=== PATIENT | female | born 1985 | race Caucasian/White ===

== ENCOUNTER 2020-02-29 21:32 | Emergency (ER) | payer OTHER ==
[~2020-02-29] VITALS: Ht 157.5 cm; Wt 65.8 kg
[~2020-02-29 21:32] MED LIST: EXPECTA PRENAT1 EACH; NAPR550 PO; OXYACE5T PO
[2020-02-29 23:41] LABS: Source, Urine Clean Catch
[2020-02-29 23:52] LABS: Bilirubin, Urine Neg (Neg); Blood, Urine 5+ (Neg); Glucose Qualitative, Urine Neg (Neg); Ketones, Urine Neg (Neg); Leukocyte Esterase, Urine 1+ (Neg); Nitrite, Urine Neg (Neg); Protein, Urine Neg (Neg); Specific Gravity, Urine 1.025 (1.003-1.022); Urobilinogen, Urine NORM (Normal)
[2020-02-29 23:55] LABS: Appearance, Urine Clear (Clear); Bacteria Not Seen /hpf; Color, Urine Yellow (P-Yellow); Squamous Epithelial Cells Rare /hpf (Few); White Blood Cells, Urine Rare /hpf (0-5)
[2020-02-29 23:58] LABS: BASOPHILS ABSOLUTE AUTO 0.05 K/mm3 (0.00-0.23); BASOPHILS PERCENT AUTO 0 % (0-2); EOSINOPHILS ABSOLUTE AUTO 0.22 K/mm3 (0.00-0.68); EOSINOPHILS PERCENT AUTO 2 % (0-6); Hematocrit 42.9 % (33.0-51.0); Hemoglobin 14.1 g/dL (11.5-16.0); IMMATURE GRAN ABSOLUTE AUTO 0.03 K/mm3 (0.00-0.10); IMMATURE GRAN PERCENT AUTO 0 % (0-1); LYMPHOCYTES ABSOLUTE AUTO 0.87 K/mm3 (0.84-5.20); LYMPHOCYTES PERCENT AUTO 7 % (21-46); MONOCYTES ABSOLUTE AUTO 0.51 K/mm3 (0.16-1.47); MONOCYTES PERCENT AUTO 4 % (4-13); Mean Corpuscular HGB 30.7 pg (26.0-34.0); Mean Corpuscular HGB Conc 32.9 g/dL (31.5-36.5); Mean Corpuscular Volume 94 fL (80-100); NEUTROPHILS ABSOLUTE AUTO 10.41 K/mm3 (1.96-9.15); NEUTROPHILS PERCENT AUTO 86 % (41-73); Platelet Count 242 K/mm3 (150-400); RDW Coefficient Variation 12.8 % (11.7-14.2); RDW Standard Deviation 43.8 fL (35.1-46.3); Red Blood Cell Count 4.59 M/mm3 (3.80-5.20); White Blood Cell Count 12.09 K/mm3 (4.00-11.30)
[2020-03-01 00:16] LABS: Alanine Aminotransfer (ALT/SGP 22 U/L (12-78); Albumin, Blood 4.2 g/dL (3.4-5.0); Albumin/Globulin Ratio 1.2 (0.8-1.8); Alk Phos 69 U/L (50-136); Anion Gap 9 mmol/L (6-16); Aspartate Aminotrans (AST/SGOT 17 U/L (12-37); Bilirubin, Total 0.4 mg/dL (0.1-1.0); Blood Urea Nitrogen 12 mg/dL (8-24); Bun/Creatinine Ratio 14.2 (12.0-20.0); CO2, Blood 22 mmol/L (21-32); Calcium, Blood 8.8 mg/dL (8.5-10.1); Chloride, Blood 110 mmol/L (98-108); Creatinine, Blood 0.85 mg/dL (0.40-1.00); Globulin, Blood 3.5 g/dL (2.2-4.0); Glomerular Filtration Rate >60 (60-); Glucose, Blood 109 mg/dL (70-99); Potassium, Blood 3.4 mmol/L (3.5-5.5); Sodium, Blood 141 mmol/L (136-145); Total Protein, Blood 7.7 g/dL (6.4-8.2)
[2020-03-01] MEDS ORDERED: OMEP20ER PO (01:32)
== END 2020-03-01 01:35 | disposition home or self-care (01) ==
LOC: ER 21:32
PROVIDERS: Physician Assistant
DX: R10.9 Unspecified abdominal pain (principal)
CPT/HCPCS: 36415; 76705; 80053; 81001; 81025; 83690; 85025; 87086; 96361; 96374; 96375; 99284-25; C9113; J1170; J2405; J7030

== ENCOUNTER 2022-03-09 06:14 | Day surgery (SDC) | payer OTHER ==
[~2022-03-09] VITALS: Ht 157.5 cm; Wt 69.5 kg
[~2022-03-09 06:14] MED LIST changes: +OMEP20ER PO
--- NOTE | 2022-03-09 08:24 | NUR ---
03/09/22 0824 Steven Walls PT ADMINISTERED 2G ANCEF AT [address] MENDENHALL TO 18GA RIGHT FOREARM.
--- NOTE | 2022-03-09 11:31 | NUR ---
1110 PATIENT C/O NAUSEA, DENIES PAIN. PATIENT DECLINES PHENERGAN AT THIS TIME. WILL ASK DR JAIN FOR ALTERNATE ANTIEMETIC 1119 MEDICATED FOR NAUSEA AFTER OBTAINING ORDER FOR ZOFRAN FROM DR JAIN. C/O 5/10 DULL PAIN TO RUQ ABD AND BOTH SHOULDERS. 1122 DENIES NAUSEA 1133 APPEARS ALSEEP, RESP EVEN AND UNLABORED.
--- NOTE | 2022-03-09 11:38 | NUR ---
PATIENT STATES HER PAIN DECREASED TO 4/10 POST ANALGESIC AND DECLINES FURTHER ANALGESIC AT THIS TIME.
--- NOTE | 2022-03-09 11:45 | NUR ---
BEL PAD FROM OR INTACT WITH LESS THAN DIME SIZE RED DRAINAGE NOTED. INCISIONS SITES TO ABD X4 WITH DERMABOND GLUE CLOSURE NOTED INTACT WITH NO NOTED DRAINAGE, SWELLING ERYTHEMA OR BRUISING.
--- NOTE | 2022-03-09 11:58 | NUR ---
MEDICATED FOR C/O 5/10 PAIN TO RUQ/LUQ ABDOMEN AND RIGHT SHOULDER PAIN.
--- NOTE | 2022-03-09 12:18 | NUR ---
ADMIT NOTE PT TO ROOM AT 1215. ORIENTED TO ROOM AND CALL LIGHT. PT'S VITALS MONTORED AND WILL BE REASSESSED. ADMISSION SCREENING, HISTORY, AND ASSESSMENT COMPLETED.
--- NOTE | 2022-03-09 17:32 | NUR ---
SHIFT SUMMARY PT TO ROOM FROM PACU AT 1215. PT ABLE TO STAND AND ROTATE TO HER BED W/O ASSISTANCE. PT'S ADMIT HISTORY, SCREENING, AND ASSESSMENT PERFORMED. PT ABLE TO TOLERATE A SMALL AMOUNT OF PO INPUT AT THAT TIME. PT HAS SINCE BEEN DRINKING CLEAR FLUIDS W/O COMPLAINT. PT'S PAIN CONTROLLED W/ PERCOCET ORDERED. PT RESTING IN ROOM W/ FAMILY PRESENT AT THIS TIME.
--- NOTE | 2022-03-10 04:14 | NUR ---
SUMMARY PT SLEPT WELL T/O THE NIGHT. MEDICATED FOR PAIN PER EMAR, PT REPORTED THAT SHE RECIEVED GOOD RESULTS AND THAT HER DISCOMFORT BECAME TOLLERABLE. LAP SITES REMAINED C/D/I T/O THE NIGHT, PT IS WEARING PERSONAL ABDOMINAL BINDER. PT DID NOT GET OOB SHE WAS TIRED FROM THE PROCEEDURE. SCANT BLEEDING NOTED ON BEL PAD AT THE BEGINNING OF SHIFT, PT REMOVED PAD AND HAS NOT NEEDED TO USE ANOTHER. PT TOLLERATED PO INTAKE WELL, NO N/V REPORTED. VSS. PT CURRENTLY RESTING IN BED IN NO DISTRESS, CALL LIGHT IN REACH
[2022-03-10 05:14] LABS: BASOPHILS ABSOLUTE AUTO 0.02 K/mm3 (0.00-0.23); BASOPHILS PERCENT AUTO 0 % (0-2); EOSINOPHILS ABSOLUTE AUTO 0.02 K/mm3 (0.00-0.68); EOSINOPHILS PERCENT AUTO 0 % (0-6); Hematocrit 39.7 % (33.0-51.0); Hemoglobin 13.1 g/dL (11.5-16.0); IMMATURE GRAN ABSOLUTE AUTO 0.04 K/mm3 (0.00-0.10); IMMATURE GRAN PERCENT AUTO 0 % (0-1); LYMPHOCYTES ABSOLUTE AUTO 1.51 K/mm3 (0.84-5.20); LYMPHOCYTES PERCENT AUTO 13 % (21-46); MONOCYTES ABSOLUTE AUTO 0.86 K/mm3 (0.16-1.47); MONOCYTES PERCENT AUTO 7 % (4-13); Mean Corpuscular HGB 31.2 pg (26.0-34.0); Mean Corpuscular Volume 95 fL (80-100); NEUTROPHILS ABSOLUTE AUTO 9.35 K/mm3 (1.96-9.15); NEUTROPHILS PERCENT AUTO 79 % (41-73); Platelet Count 216 K/mm3 (150-400); RDW Coefficient Variation 12.8 % (11.7-14.2); RDW Standard Deviation 43.8 fL (35.1-46.3)
[2022-03-10] MEDS ORDERED: PROM25 PO (14:03)
[2022-03-10] MEDS ORDERED: Percocet 5-3251 EACH PO (14:03)
[2022-03-10] MEDS ORDERED: SIME80CH PO (14:04)
--- NOTE | 2022-03-10 14:28 | NUR ---
DISCHARGE SUMMARY POD1 LAVH, A/OX4, VSS, TOLERATING PO, PAIN WELL MANAGED. REMOVED IV ACCESS AND NO OTHER IV ACCESS DEVICES IN PLACE. DISCUSSED DISCHARGE INSTRUCTIONS INCLUDING HOME CARE, FOLLOW UP APPOINTMENTS, PAIN MANAGEMENT, AND CONTACT INFROMATION SHOULD ANY QUESTIONS COME UP AFTER SHE LEAVES. PT REPORTS HAVING NO QUESTIONS AT THIS TIME. PT DECLINES WC ESCORT OUT OF HOSPITAL, PT LEFT AMBULATORY WITH HER TO GO HOME.
== END 2022-03-10 14:22 | disposition home or self-care (01) ==
LOC: ORSCMMR 06:14 → SURS 06:14 → ORSCMMR 06:15 → SURS 12:15 → ORSCMMR 03-10 14:22
PROVIDERS: Obstetrics & Gynecology
PROC: 8E0W4CZ Robotic Assisted Procedure of Trunk Region, Percutaneous Endoscopic Approach (ICD-10-PCS; principal; 2022-03-09 07:30)
PROC: 0UT74ZZ Resection of Bilateral Fallopian Tubes, Percutaneous Endoscopic Approach (ICD-10-PCS; principal; 2022-03-09 07:30)
PROC: 0UBF4ZX Excision of Cul-de-sac, Percutaneous Endoscopic Approach, Diagnostic (ICD-10-PCS; principal; 2022-03-09 07:30)
PROC: 0UT94ZZ Resection of Uterus, Percutaneous Endoscopic Approach (ICD-10-PCS; principal; 2022-03-09 07:30)
DX: N92.1 Excessive and frequent menstruation with irregular cycle (principal); N80.0 Endometriosis of uterus; N94.6 Dysmenorrhea, unspecified; N94.12 Deep dyspareunia; R10.2 Pelvic and perineal pain; N72 Inflammatory disease of cervix uteri; K66.0 Peritoneal adhesions (postprocedural) (postinfection); Z87.891 Personal history of nicotine dependence; K21.9 Gastro-esophageal reflux disease without esophagitis; Z79.899 Other long term (current) drug therapy; M91.10 Juvenile osteochondrosis of head of femur [Legg-Calve-Perthes], unspecified leg
CPT/HCPCS: 58571; 58662; 49329; S2900; 36415; 85025; 88305; 88307; A9270; J0690; J1100; J1885; J2250; J2270; J2405; J2704; J3010; J7120